=== PATIENT | female | born 1995 | race Caucasian/White ===

== ENCOUNTER 2021-06-16 11:30 | Observation (INO) | payer OTHER ==
[2021-06-16 11:58] VITALS: BP 121/77; PULSE 99; O2SAT 97
--- NOTE | 2021-06-16 14:23 | XRAY ---
Indication: Anatomy. Two-dimensional OB ultrasound performed. Comparison: None for this . Twin . Twin A is currently in breech presentation. Four-chamber heart with heart rate 149 BPM. Normal three-vessel cord and cord insertion. Visualized head, spine, stomach, kidneys, and bladder are unremarkable. Anterior placenta without abruption/previa. BPD measures 8.21 cm corresponding to 33 weeks 0 days. HC measures 29.42 cm corresponding to 32 weeks 3 days. AC measures 28.06 m corresponding to 32 weeks 1 day. FL measures 6.09 cm corresponding to 31 weeks 4 days. Estimated weight is 4 lbs. 3 oz., +/-10 ounces. GERARDO is 16.6 cm. Impression: Viable intrauterine twin . Mean gestational age twin A is 32 weeks 2 days. Expected date confinement is August 09, 2021. No gross anomalies.
--- NOTE | 2021-06-16 14:25 | XRAY ---
Indication: Anatomy. Two-dimensional OB ultrasound performed. Comparison: None for this . Twin . Twin B is currently in cephalic presentation. Four-chamber heart with heart rate 131 BPM. Normal three-vessel cord and cord insertion. Visualized head, stomach, kidneys, and bladder are unremarkable. Anterior placenta without abruption/previa. BPD measures 8.12 cm corresponding to 32 weeks 4 days. HC measures 28.38 cm corresponding to 31 weeks 1 day. AC measures 29.47 m corresponding to 33 weeks 3 days. FL measures 6.39 cm corresponding to 33 weeks 0 day. Estimated weight is 4 lbs. 10 oz., +/-11 ounces. GERARDO is 15.2 cm. Impression: Viable intrauterine twin . Mean gestational age twin B is 32 weeks 4 days. Expected date confinement is August 07, 2021. No gross anomalies.
[2021-06-16 14:28] LABS: Hematocrit 32.1 % (35-47); Hemoglobin 10.2 gm/dl (12.0-16.0); Mean Cell Volume 81.5 fl (78-100); Mean Corpuscular Hemoglobin 25.9 pg (26-32); Mean Corpuscular Hgb Concent. 31.8 g/dl (32-36); Mean Platelet Volume 9.9 fl (7.5-11.0); Platelet Count 188 K/mm3 (150-450); Red Blood Count 3.94 M/mm3 (4.1-5.4); White Blood Count 11.2 K/mm3 (4.0-10.5)
[2021-06-16 15:12] LABS: Appearance CLEAR (CLEAR); Bilirubin NEGATIVE (NEGATIVE); Dipstick done @ ? MAIN LAB; Glucose NEGATIVE (NEGATIVE); Ketones TRACE (NEGATIVE); Nitrite NEGATIVE (NEGATIVE); Protein,Urine Dip 30 (Negative); RBC TRACE-INTACT Ery/ul (0-5); Specific Gravity >=1.030 (1.005-1.025); Urobilinogen 0.2 mg/dL (0-1)
[2021-06-16 15:13] LABS: ALBUMIN 3.4 g/dL (3.5-5.0); ALKALINE PHOSPHATASE 141 U/L (38-126); ANION GAP 14.2 MEQ/L (5-15); BLOOD UREA NITROGEN 7 mg/dL (7-17); CHLORIDE 105 mmol/L (98-107); Calcium 8.6 mg/dL (8.4-10.2); Carbon Dioxide 19 mmol/L (22-30); Creatinine 1 0.51 mg/dL (0.52-1.04); EST GLOMERULAR FILTRATION RATE > 60.0 ML/MIN; Glucose 66 mg/dL (74-106); SGOT/AST 28 U/L (14-36); SGPT/ALT 11 U/L (0-35); SODIUM 134 mmol/L (137-145); Total Protein 6.6 g/dL (6.3-8.2)
[2021-06-16 15:15] LABS: Epithelial Cells RARE /HPF (FEW); Mucus SLIGHT /HPF (NEGATIVE); RBC 0-2 /HPF (0-2); WBC 0-2 /HPF (0-5)
[2021-06-16 15:23] LABS: ABO TYPING A; Antibody Screen NEGATIVE (NEGATIVE); RH TYPING POSITIVE
[2021-06-16 15:28] LABS: Amphetamine,Urine NEGATIVE (NEGATIVE); Barbiturate,Urine NEGATIVE (NEGATIVE); Benzodiazepine,Urine NEGATIVE (NEGATIVE); Cocaine,Urine NEGATIVE (NEGATIVE); Methadone,Urine NEGATIVE (NEGATIVE); Opiate,Urine NEGATIVE (NEGATIVE); PCP,Urine NEGATIVE (NEGATIVE); THC,Urine NEGATIVE (NEGATIVE)
[2021-06-16 15:37] LABS: Creatinine, Urine Random > 346.5 mg/dl; TP, Urine Random < 5.0 mg/dl (<12)
[2021-06-16 15:55] LABS: Urine Cultured Indicated? YES
[2021-06-17 08:13] LABS: RPR Non Reactive (Non Reactive)
[2021-06-17 19:15] LABS: HBsAg Screen Negative (Negative); HIV Screen 4th Generation wRfx Non Reactive (Non Reactive); Hep C Virus Ab <0.1 s/co ratio (0.0-0.9); Rubella Antibodies, IgG 8.32 index (Immune >0.99); Varicella Zoster IgG 1040 index (Immune >165)
== END 2021-06-16 14:36 | disposition home or self-care (01) ==
LOC: OB 11:30
PROVIDERS: ADMIT Obstetrics & Gynecology; ATTEND Obstetrics & Gynecology
DX: O30.043 Twin pregnancy, dichorionic/diamniotic, third trimester (principal); Z3A.32 32 weeks gestation of pregnancy
CPT/HCPCS: 36415; 76805; 76810; 80053; 80307; 81015; 82570; 83036; 84156; 84443; 85027; 86592; 86762; 86787; 86803; 86850; 86900; 86901; 87086; 87340; 87389; G0378; G0472